=== PATIENT | male | born 1970 | race African-American/Black ===

== ENCOUNTER 2016-10-13 13:31 | Emergency (ER) | payer SELFPAY ==
[2016-10-13 13:37] VITALS: BP 134/78; PULSE 88; TEMP 97.7; BMI 23.3
--- NOTE | 2016-10-13 14:17 | PDOC ---
History of Present Illness - General Chief Complaint: Injury Stated Complaint: INJURY TO ARM WORK RELATED Time Seen by Provider: 10/13/16 13:38 History Source: Patient Exam Limitations: No Limitations - History of Present Illness Initial Comments: 10/13/16 14:12 46 yr male with c/o pain to right forearm after getting hit with a piece of canvas to the arm at work. Occurred: reports: just prior to arrival Past History - Past Medical History Allergies/Adverse Reactions: Allergies Allergy/AdvReac Type Severity Reaction Status Date / Time No Known Allergies Allergy Verified 10/13/16 13:37 Home Medications: Ambulatory Orders NK [No Known Home Medication] 03/02/16 HTN: Yes - Psycho/Social/Smoking Cessation Hx Suicidal Ideation: No Smoking History: Never smoked Information on smoking cessation initiated: No Hx Alcohol Use: Yes (occasional wine) Drug/Substance Use Hx: No Substance Use Type: None Review of Systems - Review of Systems Able to Perform ROS?: Yes Is the patient limited Pashto proficient: No Constitutional: No: Symptoms Reported HEENTM: No: Symptoms Reported Respiratory: No: Symptoms reported Cardiac (ROS): No: Symptoms Reported Musculoskeletal: Yes: Symptoms Reported *Physical Exam - Vital Signs Last Vital Signs Temp Pulse Resp BP Pulse Ox 97.7 F 88 18 134/78 99 10/13/16 13:35 10/13/16 13:35 10/13/16 13:35 10/13/16 13:35 10/13/16 13:35 - Physical Exam General Appearance: Yes: Nourished, Appropriately Dressed HEENT: positive: EOMI, DORA, Normal ENT Inspection, TMs Normal, Pharynx Normal Neck: positive: Supple Respiratory/Chest: positive: Lungs Clear, Normal Breath Sounds Cardiovascular: positive: Regular Rhythm, Regular Rate Extremity: positive: Normal Capillary Refill, Normal Range of Motion, Swelling ( right mid shaft forearm , no bony tenderness, FROM ) Integumentary: positive: Normal Color, Dry, Warm Neurologic: positive: Fully Oriented, Alert, Normal Mood/Affect, Normal Response , Motor Strength 5/5 ED Treatment Course - RADIOLOGY Radiology Studies Ordered: Category Date Time Status FOREARM- RIGHT [RAD] Stat Radiology 10/13/16 13:46 Completed Medical Decision Making - Medical Decision Making 10/13/16 16:04 cc: pain to right forearm after getting injured at work, states a piece of canvas hit his arm pt has FROM small area of bruising 3cm to the right forearm will xray to r/o fx pt refused motrin or tylenol pt asking to be off tomorrow return next week *DC/Admit/Observation/Transfer Diagnosis at time of Disposition: Contusion Qualifiers: Encounter type: initial encounter Contusion area: forearm Laterality: right Qualified Code(s): S50.11XA - Contusion of right forearm, initial encounter - Discharge Dispostion Disposition: HOME Condition at time of disposition: Good - Referrals Referrals: Jermaine Hager MD [Primary Care Provider] - Woo Rogers MD [Staff Physician] - - Patient Instructions Additional Instructions: apply ice every 2hrs for 20 minutes for 2 days take motrin for pain every 6hrs follow with the orthopedist for follow up if symptoms worsen or persist - Post Discharge Activity Work/School Note: Back to Work
== END 2016-10-13 14:20 | disposition home or self-care (01) ==
LOC: JERFT 13:31
DX: S50.11XA Contusion of right forearm, initial encounter (principal); W20.8XXA Other cause of strike by thrown, projected or falling object, initial encounter; Y93.9 Activity, unspecified; Y92.9 Unspecified place or not applicable; Y99.0 Civilian activity done for income or pay; I10 Essential (primary) hypertension
CPT/HCPCS: 73090-TC-RT; 99281-25

== ENCOUNTER 2018-04-28 10:21 | Emergency (ER) | payer OTHER ==
[2018-04-28 10:36] VITALS: BP 130/93; PULSE 76; TEMP 98.6; BMI 22.8
--- NOTE | 2018-04-28 10:47 | PDOC ---
History of Present Illness - General Chief Complaint: Laceration Stated Complaint: LACERATION OF THE LEFT HAND Time Seen by Provider: 04/28/18 10:46 History Source: Patient Exam Limitations: No Limitations - History of Present Illness Initial Comments: 04/28/18 16:08 48 yo M w/ no sig PMHx comes in c/o left hand laceration which happened about 10 hours ago, he tripped over uneven pavement on the sidewalk and landed on his hands to break his fall. Denies head trauma, no LOC, no neck pain, no neck stiffness, no back pain, no injury anywhere else. Tetanus status unknown Past History - Past Medical History Allergies/Adverse Reactions: Allergies Allergy/AdvReac Type Severity Reaction Status Date / Time No Known Allergies Allergy Verified 04/28/18 10:27 Home Medications: Ambulatory Orders Cephalexin Monohydrate [Keflex -] 500 mg PO Q8H 7 Days #21 capsule 04/28/18 Losartan Potassium [Cozaar] 25 mg PO DAILY 04/28/18 Tamsulosin HCl [Flomax] 0.4 mg PO DAILY 04/28/18 COPD: No HTN: Yes Other medical history: BPH - Suicide/Smoking/Psychosocial Hx Smoking History: Never smoked Information on smoking cessation initiated: No Hx Alcohol Use: Yes (occasional wine) Drug/Substance Use Hx: No Substance Use Type: None Review of Systems - Review of Systems Able to Perform ROS?: Yes Constitutional: No: Chills, Fever, Malaise, Night Sweats HEENTM: No: Eye Pain, Recent change in vision, Throat Pain Respiratory: No: Cough, Shortness of Breath Cardiac (ROS): No: Chest Pain, Palpitations, Chest Tightness ABD/GI: No: Diarrhea, Nausea, Vomiting, Abdominal cramping : No: Dysuria, Hematuria Musculoskeletal: No: Back Pain Integumentary: No: Rash Neurological: No: Headache, Numbness, Dizziness Psychiatric: No: Change in Appetite Endocrine: No: Unexplained Weight Loss *Physical Exam - Vital Signs Last Vital Signs Temp Pulse Resp BP Pulse Ox 98.6 F 76 18 130/93 100 04/28/18 10:28 04/28/18 10:28 04/28/18 10:28 04/28/18 10:28 04/28/18 10:28 - Physical Exam General Appearance: Yes: Nourished. No: Apparent Distress HEENT: positive: DORA, Normal Voice. negative: Pale Conjunctivae, Scleral Icterus (R), Scleral Icterus (L) Neck: positive: Supple. negative: Decreased range of motion Respiratory/Chest: negative: Respiratory Distress, Accessory Muscle Use Cardiovascular: positive: Regular Rate Musculoskeletal: positive: Normal Inspection. negative: Decreased Range of Motion Extremity: positive: Normal Capillary Refill, Normal Inspection, Normal Range of Motion, Other (L hand with a 2cm partial thickness laceration to the palm, no active bleeding now. Full sensory function, FROM all fingers, with 5/5 strength. L wrist with FROM, 5/5 strength, no swelling, no changes in skin, very mild tenderness diffusely at wrist, no suffbox tenderness, no scaphoid tenderness). negative: Tender, Pedal Edema Integumentary: positive: Normal Color, Dry. negative: Jaundice, Rash Neurologic: positive: Fully Oriented, Alert, Normal Mood/Affect Procedures - Splinting Splint Location: Left: Wrist Pre-Proc Neuro Vasc Exam: normal Hand-Made Type: orthoglass Splint Type: Yes: Volar Post-Proc Neuro Vasc Exam: normal David Bandage: yes Complications: No - Laceration/Wound Repair Left Volar Hand Wound Length: to 2.5 cm Wound Explored: clean, no foreign body present Wound's Depth, Shape: into muscle, irregular Betadine Prep: Yes Anesthesia: 1% Lidocaine Amount of Anesthetic (ccs): 1 Wound Repaired With: Sutures (1 suture applied only for approximation, not for wound closure) Suture Size/Type: 4:0 Number of Sutures: 1 Layer Closure: No Sterile Dressing Applied: Yes Splint Applied: Yes Type of Splint Applied: volar splint Sling Applied: No Medical Decision Making - Medical Decision Making 04/28/18 17:09 48 yo w/ 10hr old and laceration. NO FB seen, wound cleaned thoroughly, 1 suture for approximation. WIll give keflex prophylactically. He will return in 2 days for wound check. *DC/Admit/Observation/Transfer Diagnosis at time of Disposition: Laceration of hand, Wrist injury, Abrasions of multiple sites, Fall - Discharge Dispostion Disposition: HOME Condition at time of disposition: Stable - Prescriptions Prescriptions: Cephalexin Monohydrate [Keflex -] 500 mg PO Q8H 7 Days #21 capsule - Referrals - Patient Instructions Additional Instructions: Return to the ER for wound check in 2 days. Keep the wound clean and dry at all times. Return for worsening/concerning symptoms including numbness/tingling, change in skin color, fever/chills, signs of infection - Post Discharge Activity Forms/Work/School Notes: Back to Work
[2018-04-28] MEDS ORDERED: DIPHTH,PERTUSS(ACELL),TET 0.5 ML DISP.SYRIN IM ONE (11:19)
== END 2018-04-28 11:33 | disposition home or self-care (01) ==
LOC: JER 10:21 → JERFT 10:21
PROC: 0JQK0ZZ Repair Left Hand Subcutaneous Tissue and Fascia, Open Approach (ICD-10-PCS; principal; 2018-04-28)
PROC: 2W3DX1Z Immobilization of Left Lower Arm using Splint (ICD-10-PCS; 2018-04-28)
DX: S61.412A Laceration without foreign body of left hand, initial encounter (principal); W18.39XA Other fall on same level, initial encounter; Y93.89 Activity, other specified; Y92.480 Sidewalk as the place of occurrence of the external cause; Y99.8 Other external cause status
CPT/HCPCS: 12001; 29125; 90715; 99282-25

== ENCOUNTER 2018-04-30 08:48 | Emergency (ER) | payer SELFPAY ==
[2018-04-30 09:13] VITALS: BP 128/94; PULSE 97; TEMP 98.9; BMI 22.8
[2018-04-30] MEDS ORDERED: BACITRACIN 15 GM TUBE TOPICAL OINTMENT TP ONE (10:01)
[2018-04-30] MEDS ORDERED: BACITRACIN 15 GM TUBE TOPICAL OINTMENT ONE (10:03)
--- NOTE | 2018-04-30 10:06 | PDOC ---
History of Present Illness - General Chief Complaint: Revisit,Wound Recheck Stated Complaint: FOLLOW UP Time Seen by Provider: 04/30/18 09:38 History Source: Patient Exam Limitations: No Limitations - History of Present Illness Initial Comments: 04/30/18 10:00 Patient came for evaluation of right hand injury sustained Monday. tripped and fell incurring an avulsion and laceration to right palm with wrist sprain. Was cleaned and jagged wound was tacked together. Was instructed to return here for wound check. States has continued pain but has been in splint since time of injury. 04/30/18 10:05 Occurred: reports: just prior to arrival Severity: reports: mild Pain Location: reports: upper extremity Method of Injury: Yes: unknown Modifying Factors: improves with: immobilization Associated Symptoms (Fall): denies symptoms Past History - Travel Traveled outside of the country in the last 30 days: No Close contact w/someone who was outside of country & ill: No - Past Medical History Allergies/Adverse Reactions: Allergies Allergy/AdvReac Type Severity Reaction Status Date / Time No Known Allergies Allergy Verified 04/30/18 09:08 Home Medications: Ambulatory Orders Cephalexin Monohydrate [Keflex -] 500 mg PO Q8H 7 Days #21 capsule 04/28/18 Losartan Potassium [Cozaar] 25 mg PO DAILY 04/28/18 Tamsulosin HCl [Flomax] 0.4 mg PO DAILY 04/28/18 COPD: No HTN: Yes Other medical history: bph - Suicide/Smoking/Psychosocial Hx Smoking History: Never smoked Information on smoking cessation initiated: No Hx Alcohol Use: Yes (occasional wine) Drug/Substance Use Hx: No Substance Use Type: None Review of Systems - Review of Systems Able to Perform ROS?: Yes Is the patient limited Kyrgyz proficient: Yes Constitutional: Yes: See HPI. No: Symptoms Reported, Fever, Malaise Musculoskeletal: Yes: Symptoms Reported, See HPI, Joint Pain Integumentary: Yes: Symptoms Reported, See HPI All Other Systems: Reviewed and Negative *Physical Exam - Vital Signs Last Vital Signs Temp Pulse Resp BP Pulse Ox 98.9 F 97 H 18 128/94 100 04/30/18 09:11 04/30/18 09:11 04/30/18 09:11 04/30/18 09:11 04/30/18 09:11 - Physical Exam General Appearance: Yes: Nourished, Appropriately Dressed. No: Apparent Distress HEENT: positive: DORA, Normal ENT Inspection, TMs Normal, Pharynx Normal Neck: positive: Supple. negative: Tender Respiratory/Chest: positive: Lungs Clear Musculoskeletal: positive: Normal Inspection. negative: Vertebral Tenderness Extremity: positive: Normal Capillary Refill, Normal Range of Motion Integumentary: positive: Normal Color, Ecchymosis, Bruising, Other (mildly macerated but approximated one suture noted to mid palm of right hand, has full range of motion of fingers and strong flexion and extension against resistance. Neurovascular intact. Wrist joint is mobile however mildly stiff from being in dorsal splint to 3 days. 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 NML intact, Fully Oriented, Alert, Normal Mood/ Affect, Normal Response, Motor Strength 5/5 Progress Note - Progress Note Progress Note: Wound check to right palm, appears to be healing well, has full range of motion to hand, and will continue antibiotic cream and dressing until sutures removed *DC/Admit/Observation/Transfer Diagnosis at time of Disposition: Visit for wound check - Discharge Dispostion Disposition: HOME Condition at time of disposition: Stable Decision to Admit order: No - Referrals - Patient Instructions Printed Discharge Instructions: DI for Puncture Wound Additional Instructions: Rest, keep area elevated. Avoid strenuous activity or exercise until wound is healed Use hot soaks to area to bring more blood to the surface and encourage drainage May change dressings as needed to keep clean - nd repacking as needed Allow water from shower to wash area thoroughly for 2-3 minutes, and pat dry upon exit of shower and replace dressing. Change his dressing daily until the wound is completely healed. May use Tylenol or Motrin for mild pain relief Continue all medications as prescribed Return to emergency Department for worsening swelling, pain, redness, fevers as needed - Post Discharge Activity Forms/Work/School Notes: Back to Work
== END 2018-04-30 10:11 | disposition home or self-care (01) ==
LOC: JERFT 08:48
DX: Z48.817 Encounter for surgical aftercare following surgery on the skin and subcutaneous tissue (principal); S61.411D Laceration without foreign body of right hand, subsequent encounter; W19.XXXD Unspecified fall, subsequent encounter
CPT/HCPCS: 99281-25

== ENCOUNTER 2020-06-15 11:15 | Emergency (ER) | payer OTHER ==
[2020-06-15 11:39] VITALS: BP 144/91; PULSE 108; TEMP 98.7; BMI 23.3
[2020-06-15] MEDS ORDERED: ACETAMINOPHEN 500 MG TABLET (FP) PO ONE (11:45)
[2020-06-15] MEDS ORDERED: ACETAMINOPHEN 500 MG TABLET (FP) ONE (11:54)
[2020-06-15] MEDS ORDERED: SILVER NITRATE 75% APPLIC STCK 1 PKT EACH ONE (12:13)
== END 2020-06-15 12:40 | disposition home or self-care (01) ==
LOC: JERFT 11:15
PROC: 0H9GXZZ Drainage of Left Hand Skin, External Approach (ICD-10-PCS; principal; 2020-06-15)
DX: S60.10XA Contusion of unspecified finger with damage to nail, initial encounter (principal)
CPT/HCPCS: 73140-TC-RT-FY; 99284-25

== ENCOUNTER 2021-08-11 08:11 | Emergency (ER) | payer OTHER ==
[2021-08-11 08:19] VITALS: BMI 22.6
[2021-08-11] MEDS ORDERED: ALPRAZolam 1 MG TABLET PO PRN (09:42)
[2021-08-11] MEDS ORDERED: ALPRAZolam 0.25 MG TABLET PO ONE (10:17)
[2021-08-11] MEDS ORDERED: ALPRAZolam 0.25 MG TABLET ONE (10:40)
[2021-08-11 12:04] VITALS: BP 163/94; PULSE 90; TEMP 97.8
== END 2021-08-11 11:41 | disposition home or self-care (01) ==
LOC: JER 08:11
DX: F41.8 Other specified anxiety disorders (principal)
CPT/HCPCS: 99283-25

== ENCOUNTER 2022-08-30 12:31 | Emergency (ER) | payer OTHER ==
[2022-08-30 12:54] VITALS: TEMP 98.6; BMI 23.7
[2022-08-30 15:08] LABS: BASO % 0.5 % (0-2.0); EOS % 0.6 % (0-4.5); HEMATOCRIT 39.1 % (35.4-49); HEMOGLOBIN 13.4 GM/dL (11.7-16.9); MCH 30.7 pg (25.7-33.7); MCHC 34.2 g/dl (32.0-35.9); MEAN CELL VOLUME 89.8 fl (80-96); MEAN PLT VOLUME 8.2 fl (7.5-11.1); MONO % 9.4 % (3.8-10.2); NEUT % 66.5 % (42.8-82.8); PLATELET COUNT 262 10^3/uL (134-434); RBC 4.35 M/mm3 (4.00-5.60); RDW 13.6 % (11.9-15.9); WHITE BLOOD COUNT 5.2 K/mm3 (4.0-10.0)
[2022-08-30 15:19] LABS: ACTIVATED PTT 32.9 SECONDS (25.2-36.5); INR 1.04 (0.83-1.09); PROTHROMBIN TIME (PATIENT) 12.1 SEC (9.7-13.0)
[2022-08-30 15:31] LABS: ALBUMIN 4.5 g/dl (3.4-5.0); CALCIUM 9.4 mg/dL (8.5-10.1)
[2022-08-30 15:37] LABS: BILIRUBIN,TOTAL 0.6 mg/dL (0.2-1); TOT PROT 8.1 g/dl (6.4-8.2)
[2022-08-30] MEDS ORDERED: METOCLOPRAMIDE HCL INJECTION 10 MG/2 ML VIAL IVPUSH ONE (15:59)
[2022-08-30] MEDS ORDERED: SODIUM CHLORIDE 0.9% 500 ML INFUS.BAG IV ONE (15:59)
[2022-08-30] MEDS ORDERED: METOCLOPRAMIDE HCL INJECTION 10 MG/2 ML VIAL ONE (16:16)
[2022-08-30 16:36] VITALS: RESP 18
[2022-08-30 18:59] VITALS: BP 134/94; PULSE 89
== END 2022-08-30 19:02 | disposition home or self-care (01) ==
LOC: JER 12:31
PROC: 3E033GC Introduction of Other Therapeutic Substance into Peripheral Vein, Percutaneous Approach (ICD-10-PCS; principal; 2022-08-30)
DX: R42 Dizziness and giddiness (principal)
CPT/HCPCS: 0241U-QW; 36415; 70450-TC; 71046-TC-FY; 80053; 84484; 85025; 85610; 85730; 93005; 93010; 99285-25

== ENCOUNTER 2023-03-20 08:14 | Emergency (ER) | payer OTHER ==
[2023-03-20 08:21] VITALS: BP 146/95; PULSE 81; RESP 18; TEMP 98.8; BMI 26.1
[2023-03-20] MEDS ORDERED: SODIUM CHLORIDE 0.9% 500 ML INFUS.BAG IV ONE ×2 (08:49→11:38)
[2023-03-20] MEDS ORDERED: ACETAMINOPHEN 1000 MG/100 ML BAG IVPB ONE (08:49)
[2023-03-20] MEDS ORDERED: METOCLOPRAMIDE HCL INJECTION 10 MG/2 ML VIAL IVPB ONE (08:59)
[2023-03-20] MEDS ORDERED: METOCLOPRAMIDE HCL INJECTION 10 MG/2 ML VIAL ONE (09:40)
[2023-03-20] MEDS ORDERED: ACETAMINOPHEN INJECTION 100 ML IVPB ONE (09:40)
[2023-03-20 09:44] LABS: BASO % 0.5 % (0-2.0); EOS % 0.7 % (0-4.5); HEMATOCRIT 38.9 % (35.4-49); LYMPH % 27.5 % (8-40); MCH 29.6 pg (25.7-33.7); MCHC 33.5 g/dl (32.0-35.9); MEAN CELL VOLUME 88.4 fl (80-96); MEAN PLT VOLUME 9.2 fl (7.5-11.1); NEUT % 59.3 % (42.8-82.8); PLATELET COUNT 261 10^3/uL (134-434); RBC 4.41 M/mm3 (4.00-5.60); WHITE BLOOD COUNT 4.7 K/mm3 (4.0-10.0)
[2023-03-20 10:15] LABS: CALCIUM 9.4 mg/dL (8.5-10.1)
[2023-03-20 10:16] LABS: ALBUMIN 4.5 g/dl (3.4-5.0)
[2023-03-20 10:19] LABS: CREATININE 1.1 mg/dL (0.55-1.3); PHOSPHOROUS 3.5 mg/dL (2.5-4.9)
[2023-03-20 10:20] LABS: BILIRUBIN,TOTAL 0.7 mg/dL (0.2-1); TOT PROT 7.7 g/dl (6.4-8.2)
[2023-03-20 12:28] LABS: URINE APPEARANCE CLEAR; URINE BILIRUBIN NEGATIVE (NEGATIVE); URINE COLOR YELLOW; URINE GLUCOSE (UA) NEGATIVE (NEGATIVE); URINE KETONE 1+ (NEGATIVE); URINE LEUK ESTERASE NEGATIVE (NEGATIVE); URINE NITRITE NEGATIVE (NEGATIVE); URINE PROTEIN NEGATIVE (NEGATIVE); URINE UROBILINOGEN 0.2 mg/dL (0.2-1.0)
[2023-03-20 13:01] LABS: METHADONE, UR NEGATIVE (NEGATIVE); OPIATES, URI NEGATIVE (NEGATIVE); PHENCYCLIDINE,URINE NEGATIVE (NEGATIVE); URINE BARBITURATES NEGATIVE (NEGATIVE)
[2023-03-20 13:02] LABS: COCAINE, UR NEGATIVE (NEGATIVE); URINE AMPHETAMINES NEGATIVE (NEGATIVE); URINE BENZODIAZEPINES POSITIVE (NEGATIVE)
== END 2023-03-20 13:14 | disposition home or self-care (01) ==
LOC: JER 08:14
PROC: 3E033NZ Introduction of Analgesics, Hypnotics, Sedatives into Peripheral Vein, Percutaneous Approach (ICD-10-PCS; principal; 2023-03-20)
PROC: 3E033GC Introduction of Other Therapeutic Substance into Peripheral Vein, Percutaneous Approach (ICD-10-PCS; 2023-03-20)
PROC: 3E033GC Introduction of Other Therapeutic Substance into Peripheral Vein, Percutaneous Approach (ICD-10-PCS; 2023-03-20)
PROC: 3E033GC Introduction of Other Therapeutic Substance into Peripheral Vein, Percutaneous Approach (ICD-10-PCS; 2023-03-20)
DX: R53.1 Weakness (principal); R42 Dizziness and giddiness; R11.2 Nausea with vomiting, unspecified; F41.9 Anxiety disorder, unspecified; G47.00 Insomnia, unspecified; Z20.822 Contact with and (suspected) exposure to COVID-19
CPT/HCPCS: 0241U-QW; 36415; 80053; 80307; 81003; 83735; 84100; 85025; 87086; 93005; 93010; 99284-25

== ENCOUNTER 2023-03-31 09:15 | Emergency (ER) | payer OTHER ==
[2023-03-31 09:34] VITALS: BMI 22.6
[2023-03-31] MEDS ORDERED: diphenhydrAMINE HCL 25 MG CAPSULE (FP) PO ONE ×2 (10:13→10:26)
[2023-03-31] MEDS ORDERED: LORazepam 0.5 MG TABLET PO ONE (10:13)
[2023-03-31] MEDS ORDERED: LACTATED RINGERS SOLUTION 1000 ML INFUS.BAG IV ONE (10:23)
[2023-03-31] MEDS ORDERED: LORazepam 0.5 MG TABLET ONE (10:26)
[2023-03-31 10:51] LABS: BASO % 0.3 % (0-2.0); EOS % 0.4 % (0-4.5); HEMATOCRIT 38.4 % (35.4-49); HEMOGLOBIN 13.3 GM/dL (11.7-16.9); LYMPH % 23.2 % (8-40); MCH 29.9 pg (25.7-33.7); MCHC 34.6 g/dl (32.0-35.9); MEAN CELL VOLUME 86.6 fl (80-96); MEAN PLT VOLUME 8.8 fl (7.5-11.1); MONO % 13.3 % (3.8-10.2); NEUT % 62.8 % (42.8-82.8); PLATELET COUNT 251 10^3/uL (134-434); RBC 4.44 M/mm3 (4.00-5.60); RDW 13.2 % (11.9-15.9); WHITE BLOOD COUNT 4.7 K/mm3 (4.0-10.0)
[2023-03-31 11:09] LABS: POTASSIUM 4.4 mmol/L (3.5-5.1)
[2023-03-31 11:11] LABS: ALBUMIN 4.2 g/dl (3.4-5.0); CALCIUM 9.3 mg/dL (8.5-10.1)
[2023-03-31 11:15] LABS: BILIRUBIN,TOTAL 0.5 mg/dL (0.2-1); TOT PROT 7.8 g/dl (6.4-8.2)
[2023-03-31 11:45] LABS: PH,URINE 6.5 (5.0-8.0); URINE APPEARANCE CLEAR; URINE BILIRUBIN NEGATIVE (NEGATIVE); URINE COLOR YELLOW; URINE GLUCOSE (UA) NEGATIVE (NEGATIVE); URINE KETONE NEGATIVE (NEGATIVE); URINE LEUK ESTERASE NEGATIVE (NEGATIVE); URINE NITRITE NEGATIVE (NEGATIVE); URINE PROTEIN NEGATIVE (NEGATIVE); URINE UROBILINOGEN 0.2 mg/dL (0.2-1.0)
[2023-03-31 11:52] LABS: METHADONE, UR NEGATIVE (NEGATIVE); OPIATES, URI NEGATIVE (NEGATIVE); PHENCYCLIDINE,URINE NEGATIVE (NEGATIVE); URINE AMPHETAMINES NEGATIVE (NEGATIVE); URINE BENZODIAZEPINES NEGATIVE (NEGATIVE)
[2023-03-31 11:53] LABS: COCAINE, UR NEGATIVE (NEGATIVE); URINE BARBITURATES NEGATIVE (NEGATIVE)
[2023-03-31 12:25] VITALS: RESP 19
[2023-03-31 12:39] VITALS: TEMP 98.9
[2023-03-31] MEDS ORDERED: LOSARTAN POTASSIUM 50 MG TABLET PO ONE (12:51)
[2023-03-31] MEDS ORDERED: LOSARTAN POTASSIUM 50 MG TABLET ONE (12:53)
[2023-03-31 13:29] VITALS: BP 170/98; PULSE 88
== END 2023-03-31 13:43 | disposition home or self-care (01) ==
LOC: JER 09:15
DX: G47.00 Insomnia, unspecified (principal); R63.0 Anorexia
CPT/HCPCS: 36415; 80053; 80307; 81003; 84439; 84443; 85025; 93005; 93010; 99284-25

== ENCOUNTER 2023-09-05 08:16 | Emergency (ER) | payer OTHER ==
[2023-09-05 08:29] VITALS: BMI 23.3
[2023-09-05 09:59] LABS: BASO % 0.3 % (0-2.0); EOS % 0.3 % (0-4.5); HEMATOCRIT 39.8 % (35.4-49); HEMOGLOBIN 13.7 GM/dL (11.7-16.9); LYMPH % 21.2 % (8-40); MCH 30.3 pg (25.7-33.7); MCHC 34.5 g/dl (32.0-35.9); MEAN CELL VOLUME 87.9 fl (80-96); MEAN PLT VOLUME 7.9 fl (7.5-11.1); MONO % 7.3 % (3.8-10.2); NEUT % 70.9 % (42.8-82.8); PLATELET COUNT 280 10^3/uL (134-434); RBC 4.53 M/mm3 (4.00-5.60); WHITE BLOOD COUNT 4.8 K/mm3 (4.0-10.0)
[2023-09-05 10:32] LABS: POTASSIUM 3.9 mmol/L (3.5-5.1)
[2023-09-05 10:34] LABS: ALBUMIN 4.2 g/dl (3.4-5.0); CALCIUM 9.5 mg/dL (8.5-10.1)
[2023-09-05 10:35] LABS: BLOOD UREA NITROGEN 16.2 mg/dL (7-18)
[2023-09-05 10:38] LABS: CREATININE 1.1 mg/dL (0.55-1.3)
[2023-09-05 10:39] LABS: BILIRUBIN,TOTAL 0.6 mg/dL (0.2-1); TOT PROT 8.3 g/dl (6.4-8.2)
[2023-09-05 11:28] LABS: OPIATES, URI NEGATIVE (NEGATIVE); PHENCYCLIDINE,URINE NEGATIVE (NEGATIVE); URINE BARBITURATES NEGATIVE (NEGATIVE); URINE BENZODIAZEPINES NEGATIVE (NEGATIVE)
[2023-09-05 11:29] LABS: COCAINE, UR NEGATIVE (NEGATIVE); METHADONE, UR NEGATIVE (NEGATIVE); URINE AMPHETAMINES NEGATIVE (NEGATIVE)
[2023-09-05] MEDS ORDERED: ALPRAZolam 0.25 MG TABLET ONE (11:55)
[2023-09-05] MEDS: ALPRAZolam 1 MG TABLET PO PRN (12:14)
[2023-09-05] MEDS: ALPRAZolam 1 MG TABLET PO ONE (13:00)
[2023-09-05 15:54] VITALS: BP 149/102; PULSE 95; RESP 20; TEMP 98.7
== END 2023-09-05 18:31 | disposition home or self-care (01) ==
LOC: JER 08:16
DX: R45.851 Suicidal ideations (principal); F41.8 Other specified anxiety disorders; R11.10 Vomiting, unspecified; R45.1 Restlessness and agitation; G47.00 Insomnia, unspecified
CPT/HCPCS: 36415; 80053; 80307; 82962; 83690; 84443; 84484; 85025; 93005; 93010; 99284-25

== ENCOUNTER 2023-09-09 18:37 | Emergency (ER) | payer OTHER ==
[2023-09-09 18:59] VITALS: BMI 23.1
[2023-09-10 02:02] LABS: BASO % 0.6 % (0-2.0); EOS % 0.9 % (0-4.5); HEMATOCRIT 39.2 % (35.4-49); HEMOGLOBIN 13.8 GM/dL (11.7-16.9); LYMPH % 27.7 % (8-40); MCH 30.6 pg (25.7-33.7); MCHC 35.2 g/dl (32.0-35.9); MEAN CELL VOLUME 87.1 fl (80-96); MEAN PLT VOLUME 7.7 fl (7.5-11.1); MONO % 11.1 % (3.8-10.2); NEUT % 59.7 % (42.8-82.8); PLATELET COUNT 267 10^3/uL (134-434); RDW 13.9 % (11.9-15.9); WHITE BLOOD COUNT 5.6 K/mm3 (4.0-10.0)
[2023-09-10] MEDS ORDERED: ZOLPIDEM TARTRATE 5 MG TABLET ONE ×2 (02:02→21:13)
[2023-09-10] MEDS: ZOLPIDEM TARTRATE 5 MG TABLET PO ONE ×2 (02:04→21:20)
[2023-09-10 02:22] LABS: POTASSIUM 3.8 mmol/L (3.5-5.1)
[2023-09-10 02:26] LABS: ALBUMIN 4.2 g/dl (3.4-5.0); BLOOD UREA NITROGEN 15.9 mg/dL (7-18)
[2023-09-10 02:28] LABS: CREATININE 1.1 mg/dL (0.55-1.3)
[2023-09-10 02:29] LABS: BILIRUBIN,TOTAL 0.9 mg/dL (0.2-1); TOT PROT 8.1 g/dl (6.4-8.2)
[2023-09-10 03:52] LABS: CALCIUM 9.7 mg/dL (8.5-10.1)
[2023-09-10] MEDS ORDERED: MELATONIN 5 MG TABLETS ONE (12:41)
[2023-09-10] MEDS: MELATONIN 5 MG TABLETS PO ONE (12:44)
[2023-09-10] MEDS ORDERED: ACETAMINOPHEN 325 MG TABLET (FP) ONE (16:05)
[2023-09-10] MEDS: ACETAMINOPHEN 500 MG TABLET (FP) PO ONE ×2 (16:07→16:10)
[2023-09-11] MEDS ORDERED: LOSARTAN POTASSIUM 50 MG TABLET ONE (11:21)
[2023-09-11 11:24] VITALS: BP 164/115; PULSE 16; RESP 16; TEMP 98.2
[2023-09-11] MEDS: LOSARTAN POTASSIUM 50 MG TABLET PO ONE (11:24)
== END 2023-09-11 11:35 | disposition home or self-care (01) ==
LOC: JER 18:37
DX: R11.0 Nausea (principal); F32.89 Other specified depressive episodes; Z20.822 Contact with and (suspected) exposure to COVID-19
CPT/HCPCS: 0241U-QW; 36415; 71045-TC-FY; 80053; 80307; 84443; 85025; 93005; 93010; 99285-25